=== PATIENT | male | born 1965 | race African-American/Black ===

== ENCOUNTER 2017-09-14 05:57 | Emergency (ER) | payer MEDICARE, MEDICAID ==
[2017-09-14 06:33] LABS: #Basophils 0.1 thou/uL (0.0-0.2); #Eosinphils 0.2 thou/uL (0.0-0.7); #Lymphocytes 1.7 thou/uL (1.20-3.40); #Monocytes 0.7 thou/uL (0.11-0.59); #Neutrophils 3.4 thou/uL (1.40-6.50); %Eosinophils 2.6 % (0.0-10.0); %Lymphocytes 28.1 % (21.0-51.0); %Monocytes 10.9 % (0.0-10.0); %Neutrophils 57.3 % (42.0-75.0); Hemoglobin 11.7 g/dL (14.0-18.0); Mean Corpuscular HGB CONC 32.7 g/dL (32.0-36.0); Mean Corpuscular Hemoglobin 33.2 pg (27.0-31.0); Mean Platelet Volume 6.5 fL (7.4-10.4); Platelet Count 262 thou/uL (130-400); RBC Distribution Width 11.9 % (11.5-14.5); Red Blood Cell (RBC) Count 3.53 mill/uL (4.70-6.10)
[2017-09-14] MEDS ORDERED: Sterile Water 10 ML ONE (06:48)
[2017-09-14] MEDS ORDERED: Ziprasidone 20 MG VIAL ONE (06:48)
[2017-09-14 07:02] LABS: ALT (SGPT) 9 U/L (8-55); AST (SGOT) 20 U/L (5-34); Albumin 3.9 g/dL (3.5-5.0); Alkaline Phosphatase 68 U/L (40-150); Anion Gap 14 mmol/L (10-20); BUN (Urea Nitrogen) 11 mg/dL (8.9-20.6); Bilirubin, Total 0.2 mg/dL (0.2-1.2); Calc. Creatinine Clearance 0 mL/min (70-130); Calcium 9.2 mg/dL (7.8-10.44); Carbon Dioxide 24 mmol/L (22-29); Chloride 104 mmol/L (98-107); Estimated GFR-MDRD Greater than 90; Glucose 93 mg/dL (70-105); Potassium 4.3 mmol/L (3.5-5.1); Protein, Total 7.9 g/dL (6.0-8.3); Sodium 138 mmol/L (136-145)
[2017-09-14 07:04] LABS: Acetaminophen Less than 6.0 mcg/mL (10.0-30.0); Alcohol Less than 10 mg/dL (Less than 10); CK (CPK) 261 U/L (30-200); Salicylate Less than 8.0 mg/dL (15.0-30.0)
[2017-09-14 09:07] LABS: Bilirubin Negative (Negative); Blood, Urine Negative (Negative); Clarity CLEAR (Clear); Glucose, Urine (Dipstick) Negative (Negative); Leukocyte Negative (Negative); Nitrite Negative (Negative); Protein, Urine (Dipstick) Negative (Neg-Trace); Urobilinogen 0.2 mg/dL (0.2-1.0); pH, Urine 7.5 (5.0-9.0)
[2017-09-14 09:18] LABS: Amphetamine Detected (NotDetected); Barbiturates Screen Not Detected (NotDetected); Benzodiazepine Screen Not Detected (NotDetected); Cocaine Metabolite Screen Detected (NotDetected); Medtox Control Line Valid? VALID (VALID); Medtox Reader # READER 1; Methadone Not Detected (NotDetected); Methamphetamine Detected (NotDetected); Opiate Screen Not Detected (NotDetected); Oxycodone Screen Not Detected (NotDetected); Phencyclidine (PCP) Detected (NotDetected); THC/Cannabinoid Screen Not Detected (NotDetected); Tricyclic Screen Not Detected (NotDetected)
[2017-09-14] MEDS ORDERED: Lorazepam 2 MG/ML VIAL ONE (10:49)
[2017-09-14] MEDS ORDERED: diphenhydrAMINE 50 MG/ML VIAL ONE (10:49)
[2017-09-14] MEDS ORDERED: Haloperidol Lactate 5 MG/ML VIAL ONE (10:49)
[2017-09-14] MEDS ORDERED: Acetaminophen 325 MG TAB ONE (16:03)
[2017-09-14] MEDS ORDERED: traZODone HCl 50 MG TAB PO PRN (20:29)
[2017-09-14] MEDS ORDERED: Acetaminophen 325 MG TAB PO PRN (20:29)
[2017-09-14] MEDS ORDERED: hydrOXYzine Pamoate 25 mg Capsule PO PRN (20:29)
[2017-09-14] MEDS ORDERED: OLANZapine 5 MG TAB PO SCH (20:45)
[2017-09-15] MEDS ORDERED: traZODone HCl 50 MG TAB ONE (00:23)
[2017-09-15] MEDS ORDERED: hydrOXYzine Pamoate 25 mg Capsule ONE (00:23)
[2017-09-15] MEDS ORDERED: Haloperidol Lactate 5 MG/ML VIAL ONE (05:06)
[2017-09-15] MEDS ORDERED: Lorazepam 1 MG TAB ONE ×2 (06:00→08:24)
[2017-09-15] MEDS ORDERED: risperiDONE 1 MG TAB ONE (08:25)
[2017-09-15] MEDS ORDERED: OLANZapine 5 MG TAB PO SCH (09:00)
[2017-09-15] MEDS ORDERED: Ziprasidone 20 MG CAP ONE (21:54)
[2017-09-16] MEDS ORDERED: diphenhydrAMINE 50 MG/ML VIAL ONE ×2 (04:01→04:04)
[2017-09-16] MEDS ORDERED: Haloperidol Lactate 5 MG/ML VIAL ONE ×4 (04:01→09:29)
[2017-09-16] MEDS ORDERED: Lorazepam 2 MG/ML VIAL ONE ×3 (04:01→09:29)
== END 2017-09-16 10:45 ==
LOC: ERS 05:57
DX: F19.159 Other psychoactive substance abuse with psychoactive substance-induced psychotic disorder, unspecified (principal); F25.9 Schizoaffective disorder, unspecified; F20.9 Schizophrenia, unspecified; F17.210 Nicotine dependence, cigarettes, uncomplicated
CPT/HCPCS: 80053; 80306; 80307; 81003; 82550; 84443; 85025; 96372; 96374; 96375; 99406; A4216; J1200; J1630; J2060; J3486; Q0177

== ENCOUNTER 2019-07-14 11:32 | Emergency (ER) | payer MEDICARE | END 2019-07-14 12:01 | disposition home or self-care (01) | LOC: ERS 11:32 | DX: M25.551 Pain in right hip (principal); F17.210 Nicotine dependence, cigarettes, uncomplicated | CPT/HCPCS: 99281 ==

== ENCOUNTER 2019-08-10 22:29 | Emergency (ER) | payer MEDICARE ==
--- NOTE | 2019-08-10 23:00 | RAD ---
EXAM: XR Hip Rt 2-3 View PROVIDED CLINICAL HISTORY: Pain status post injury COMPARISON: 03/04/2017 FINDINGS: Sequela of prior osteonecrosis and subchondral collapse and advanced associated right hip arthropathy are redemonstrated, appearing similar to the prior study. There is no evidence for an acute fracture or other acute osseous abnormality. IMPRESSION: No evidence for an acute osseous abnormality. If there is persistent clinical concern, conservative m anagement and follow-up imaging advised.
== END 2019-08-10 23:14 | disposition home or self-care (01) ==
LOC: ERS 22:29
DX: M25.551 Pain in right hip (principal); G89.29 Other chronic pain; F17.210 Nicotine dependence, cigarettes, uncomplicated; F20.9 Schizophrenia, unspecified; W18.30XA Fall on same level, unspecified, initial encounter

== ENCOUNTER 2019-09-17 20:49 | Emergency (ER) | payer MEDICARE | END 2019-09-17 23:30 | disposition home or self-care (01) | LOC: ERS 20:49 | DX: F20.9 Schizophrenia, unspecified (principal); F17.210 Nicotine dependence, cigarettes, uncomplicated; Z79.899 Other long term (current) drug therapy | CPT/HCPCS: 99285 ==

== ENCOUNTER 2019-10-28 19:00 | Emergency (ER) | payer MEDICARE | END 2019-10-28 20:40 | disposition home or self-care (01) | LOC: ERS 19:00 | DX: M79.672 Pain in left foot (principal); M79.671 Pain in right foot; F20.9 Schizophrenia, unspecified; F17.210 Nicotine dependence, cigarettes, uncomplicated; Z79.899 Other long term (current) drug therapy | CPT/HCPCS: 99281 ==

== ENCOUNTER 2019-11-11 17:32 | Emergency (ER) | payer MEDICARE ==
--- NOTE | 2019-11-11 18:38 | RAD ---
Portable frontal chest radiograph: 11/11/2019 COMPARISON: 01/28/2017 HISTORY: Fever FINDINGS: Lungs are clear. Heart and mediastinal contours appear within normal limits. IMPRESSION: No acute findings.
== END 2019-11-11 19:40 | disposition home or self-care (01) ==
LOC: ERS 17:32
DX: B34.9 Viral infection, unspecified (principal); F17.210 Nicotine dependence, cigarettes, uncomplicated; F20.9 Schizophrenia, unspecified; Z79.899 Other long term (current) drug therapy
CPT/HCPCS: 71045; 87804

== ENCOUNTER 2020-01-08 01:47 | Emergency (ER) | payer MEDICARE ==
[2020-01-08] MEDS ORDERED: Ketorolac Tromethamine 30 MG/ML VIAL ONE (02:48)
== END 2020-01-08 02:54 | disposition home or self-care (01) ==
LOC: ERS 01:47
DX: M25.551 Pain in right hip (principal); G89.29 Other chronic pain; F17.210 Nicotine dependence, cigarettes, uncomplicated; Z79.899 Other long term (current) drug therapy
CPT/HCPCS: 96372; 99283; J1885

== ENCOUNTER 2024-01-18 11:47 | Emergency (ER) | payer MEDICARE | END 2024-01-18 13:11 | LOC: ERS 11:47 | DX: F17.210 Nicotine dependence, cigarettes, uncomplicated (principal); Z02.89 Encounter for other administrative examinations | CPT/HCPCS: 93005 ==

== ENCOUNTER 2024-07-12 16:16 | Inpatient (IN) | payer MEDICARE ==
[2024-07-12] MEDS ORDERED: Ziprasidone 20 MG VIAL ONE (20:45)
[2024-07-12] MEDS ORDERED: Sterile Water 10 ML ONE (20:46)
[2024-07-12 22:38] LABS: #Basophils Less than 0.03 10x3/uL (0.0-0.2); %Basophils 0.2 % (0.0-1.0); %Eosinophils 0.9 % (0.0-10.0); %Lymphocytes 20.9 % (21.0-51.0); %Neutrophils 70.8 % (42.0-75.0); Hematocrit 29.9 % (42.0-52.0); Hemoglobin 10.2 g/dL (14.0-18.0); Mean Corpuscular HGB CONC 34.1 g/dL (32.0-36.0); Mean Corpuscular Volume 93.7 fL (78.0-98.0); Mean Platelet Volume 9.4 fL (7.4-10.4); Platelet Count 164 10x3/uL (130-400); RBC Distribution Width 13.1 % (11.5-14.5); Red Blood Cell (RBC) Count 3.19 mill/uL (4.70-6.10)
[2024-07-12 22:53] LABS: ALT (SGPT) 22 U/L (8-55); AST (SGOT) 49 U/L (5-34); Acetaminophen Less than 10 mcg/mL (Less than 10); Albumin 2.9 g/dL (3.5-5.0); Alcohol Less than 10.0 mg/dL (Less than 10); Alkaline Phosphatase 67 U/L (40-110); Anion Gap 13 mmol/L (10-20); BUN (Urea Nitrogen) 12 mg/dL (8.4-25.7); Bilirubin, Total 0.3 mg/dL (0.2-1.2); CK (CPK) 846 U/L (30-200); Calc. Creatinine Clearance 0 mL/min (70-130); Calcium 8.4 mg/dL (7.8-10.44); Carbon Dioxide 24 mmol/L (22-29); Chloride 102 mmol/L (98-107); Estimated GFR 105; Globulin 3.5 g/dL (2.4-3.5); Glucose 104 mg/dL (70-105); Potassium 3.5 mmol/L (3.5-5.1); Protein, Total 6.4 g/dL (6.0-8.3); Salicylate Less than 8.0 mg/dL (Less than 8.0); Sodium 135 mmol/L (136-145)
[2024-07-13 02:59] LABS: Bacteria/HPF None Seen HPF (None Seen); Bilirubin Negative (Negative); Blood, Urine Trace (Negative); CAUTI Indications for Culture Pelvic or flank pain; Clarity Clear (Clear); Glucose, Urine (Dipstick) Normal (Negative); Ketone, Urine Negative (Negative); Leukocyte Negative Leu/uL (Negative); Nitrite Negative (Negative); Protein, Urine (Dipstick) Negative (Neg-Trace); RBC/HPF 0-3 HPF (0-3); Specific Gravity, Urine 1.001 (1.002-1.036); Squamous Epithelial None Seen HPF (0-3); Urobilinogen Normal mg/dL (Less than 2); WBC/HPF 0-3 HPF (0-3)
[2024-07-13 03:04] LABS: Urine Culture Reflex No No
[2024-07-13 03:08] LABS: Amphetamine Not Detected (NotDetected); Barbiturates Screen Not Detected (NotDetected); Benzodiazepine Screen Not Detected (NotDetected); Cocaine Metabolite Screen Not Detected (NotDetected); Methadone Not Detected (NotDetected); Methamphetamine Not Detected (NotDetected); Opiate Screen Not Detected (NotDetected); Oxycodone Screen Not Detected (NotDetected); Phencyclidine (PCP) Not Detected (NotDetected); THC/Cannabinoid Screen Not Detected (NotDetected); Tricyclic Screen Not Detected (NotDetected)
[2024-07-13] MEDS ORDERED: diphenhydrAMINE 50 MG/ML VIAL ONE ×2 (04:24→18:25)
[2024-07-13] MEDS ORDERED: Lorazepam 2 MG/ML VIAL ONE (04:24)
[2024-07-13] MEDS ORDERED: Haloperidol Lactate 5 MG/ML VIAL ONE (04:24)
[2024-07-13] MEDS ORDERED: LORazepam 2 MG/ML SYR.(CARPUJECT) ONE (18:26)
[2024-07-13 20:51] LABS: ALT (SGPT) 24 U/L (8-55); AST (SGOT) 55 U/L (5-34); Alkaline Phosphatase 74 U/L (40-110); Anion Gap 13 mmol/L (10-20); Bilirubin, Total 0.5 mg/dL (0.2-1.2); CK (CPK) 1172 U/L (30-200); Calc. Creatinine Clearance 0 mL/min (70-130); Calcium 8.5 mg/dL (7.8-10.44); Carbon Dioxide 24 mmol/L (22-29); Chloride 102 mmol/L (98-107); Estimated GFR 107; Glucose 85 mg/dL (70-105); Protein, Total 6.7 g/dL (6.0-8.3); Sodium 135 mmol/L (136-145)
[2024-07-13 21:02] LABS: BUN (Urea Nitrogen) 6 mg/dL (8.4-25.7); Globulin 3.7 g/dL (2.4-3.5)
[2024-07-14] MEDS: Lactated Ringer's 1,000 ML IV SCH ×2 (02:39→13:38)
[2024-07-14] MEDS ORDERED: Ondansetron PF 4 MG/2 ML Vial IVP PRN (05:05)
[2024-07-14] MEDS ORDERED: Ondansetron ODT 4 MG TAB PO PRN (05:05)
[2024-07-14] MEDS ORDERED: Acetaminophen 650 MG Suppository PR PRN (05:05)
[2024-07-14] MEDS: Acetaminophen 325 MG TAB PO SCH (06:10)
[2024-07-14] MEDS: Lorazepam 2 MG/ML VIAL SLOW IVP PRN (08:04)
[2024-07-14] MEDS: Famotidine/PF 20 mg/2ml Vial SLOW IVP SCH (08:04)
[2024-07-14] MEDS: Famotidine 20 MG TAB PO SCH (08:05)
[2024-07-14 12:34] VITALS: BMI 19.1
[2024-07-14] MEDS: FLU (Fluarix Triv) TS24-25(6MOS UP)/PF 45 MCG/0.5 ML Syringe IM ONE (13:44)
[2024-07-14] MEDS ORDERED: Sterile Water 10 ML VIAL FS PRN (15:30)
[2024-07-14] MEDS: Ziprasidone 20 MG VIAL IM SCH (15:40)
[2024-07-14] MEDS ORDERED: Lorazepam 2 MG/ML VIAL IM PRN (15:46)
[2024-07-15 05:32] LABS: #Basophils Less than 0.03 10x3/uL (0.0-0.2); #Eosinophils Less than 0.03 10x3/uL (0.0-0.7); %Basophils 0.3 % (0.0-1.0); %Eosinophils 0.7 % (0.0-10.0); %Lymphocytes 31.4 % (21.0-51.0); %Monocytes 10.4 % (0.0-10.0); %Neutrophils 57.2 % (42.0-75.0); Hematocrit 35.2 % (42.0-52.0); Hemoglobin 11.8 g/dL (14.0-18.0); Mean Corpuscular HGB CONC 33.5 g/dL (32.0-36.0); Mean Corpuscular Hemoglobin 31.8 pg (27.0-31.0); Mean Corpuscular Volume 94.9 fL (78.0-98.0); Mean Platelet Volume 10.1 fL (7.4-10.4); Platelet Count 178 10x3/uL (130-400); RBC Distribution Width 13.4 % (11.5-14.5); Red Blood Cell (RBC) Count 3.71 mill/uL (4.70-6.10)
[2024-07-15 05:55] LABS: ALT (SGPT) 23 U/L (8-55); AST (SGOT) 43 U/L (5-34); Alkaline Phosphatase 71 U/L (40-110); Anion Gap 11 mmol/L (10-20); BUN (Urea Nitrogen) 7 mg/dL (8.4-25.7); Bilirubin, Total 0.3 mg/dL (0.2-1.2); CK (CPK) 741 U/L (30-200); Calc. Creatinine Clearance 91 mL/min (70-130); Calcium 8.6 mg/dL (7.8-10.44); Carbon Dioxide 26 mmol/L (22-29); Chloride 103 mmol/L (98-107); Estimated GFR 102; Globulin 3.8 g/dL (2.4-3.5); Glucose 87 mg/dL (70-105); Potassium 3.7 mmol/L (3.5-5.1); Protein, Total 6.8 g/dL (6.0-8.3); Sodium 136 mmol/L (136-145)
[2024-07-15 13:00] VITALS: BMI 19.1
[2024-07-15] MEDS: Lactated Ringer's 1,000 ML IV SCH (19:00)
[2024-07-16] MEDS: Ziprasidone 20 MG CAP PO SCH (19:30)
[2024-07-16 19:35] VITALS: BP 103/70; TEMP 98.2
== END 2024-07-16 19:50 | DRG 557 ==
LOC: ERS 16:16 → 2SE 07-13 23:30 → OBSVTOIN 07-14 14:02
PROVIDERS: ADMIT Student in an Organized Health Care Education/Training Program; ATTEND Family Medicine
PROC: XX20X89 Monitoring of Brain Electrical Activity, Computer-aided Detection and Notification, New Technology Group 9 (ICD-10-PCS; principal; 2024-07-14)
PROC: 3E02340 Introduction of Influenza Vaccine into Muscle, Percutaneous Approach (ICD-10-PCS; 2024-07-14)
DX: M62.82 Rhabdomyolysis (principal); G93.41 Metabolic encephalopathy; F23 Brief psychotic disorder; F14.10 Cocaine abuse, uncomplicated; F17.210 Nicotine dependence, cigarettes, uncomplicated; Z23 Encounter for immunization
CPT/HCPCS: 36415; 70450; 80053; 80306; 80307; 81001; 82550; 84443; 85025; 96361; 96372; 96374; 96375; 96376; G0378; J1200; J1630; J2060; J3486; J3490; J7120